=== PATIENT | male | born 1965 | race Caucasian/White ===

== ENCOUNTER 2021-12-27 01:39 | Emergency (ER) | payer OTHER ==
[~2021-12-27] VITALS: Ht 189.2 cm; Wt 113.6 kg
[2021-12-27 01:48] VITALS: BP 120/64
--- NOTE | 2021-12-27 01:54 | PHYS DOC ---
Adult General HPI HPI Patient is a 56-year-old male who presents with left foot injury. States he went hiking with some friends and they hiked approximately 30 something mild over the last 3 days. States that yesterday he noticed some redness and swelling in his foot generally and has some dull achy pain, 5 out of 10. Denies any known traumas, illnesses, fevers, chest pain, shortness of breath, abdominal pain, nausea, vomiting. States he is able to walk on it but it causes him discomfort. States he never had anything like this before. Does not think he had any cuts, scrapes or bites/stings. States he is otherwise healthy, takes no medications and is not allergic to anything he is aware of. Review of Systems Review of Systems Review of systems otherwise unremarkable except noted in HPI Physical Exam Physical Exam Constitutional: Well developed, well nourished, no acute distress, non-toxic appearance. [] Skin: Warm, dry, no erythema, no rash. [] Extremities: No tenderness, no cyanosis, no clubbing, ROM intact, no edema. [] Neurologic: Neurovascular exam intact, left foot circumferentially warm, erythematous with some mild swelling . Range of motion intact, Psychologic: Affect normal, judgement normal, mood normal. [] EKG EKG [] Radiology/Procedures Radiology/Procedures [] Heart Score C/O Chest Pain: No Risk Factors: Risk Factors: DM, Current or recent (<one month) smoker, HTN, HLP, family history of CAD, obesity. Risk Scores: Risk Factors: DM, Current or recent (<one month) smoker, HTN, HLP, family history of CAD, obesity. Course & Med Decision Making Course & Med Decision Making Patient is a 56-year-old male who presents with left foot injury Vital signs not concerning. Physical exam noted above. Given Tylenol, ibuprofen and ice pack. Imaging with no acute osseous abnormalities. Started on antibiotics as cellulitis on differential. Discussed findings with patient. Discussed symptom treatment at home. Advised to follow-up in the morning with primary care physician to update on ED visit and set up an appointment for reevaluation in the next week Gave return precautions to the ED. Patient grateful, verbalized understanding and agreed with plan of discharge. [] Dragon Disclaimer Dragon Disclaimer This electronic medical record was generated, in whole or in part, using a voice recognition dictation system. Departure Departure: Impression: Primary Impression: Cellulitis Disposition: HOME / SELF CARE / HOMELESS Condition: GOOD Referrals: PCP,UNKNOWN (PCP) ELIUD ORLANDO MD Patient Instructions: RICE - Routine Care for Injuries Additional Instructions: Thank you for coming into the emergency department tonight and allowing us to take care of you. Please read the attached information carefully to go over things we discussed. You can use Tylenol, ibuprofen and ice as needed. Please follow-up in the morning with your primary care physician update on your ED visit and set up a follow-up. Please come back with new or concerning symptoms as we discussed. Scripts Cephalexin (KEFLEX) 500 Mg Capsule 1 CAP PO TID for cellulitis for 7 Days, #21 CAP Prov: ABBYE RAMSEY MD 12/27/21 ABBEY RAMSEY MD Dec 27, 2021 01:53
[2021-12-27] MEDS ORDERED: IBUPROFEN 600 MG TABLET. PO ONE (02:45)
[2021-12-27] MEDS ORDERED: CEPHALEXIN 250 MG CAPSULE PO ONE (02:45)
[2021-12-27] MEDS ORDERED: ACETAMINOPHEN 500 MG TABLET PO ONE (02:45)
--- NOTE | 2021-12-27 02:46 | RAD ---
XR EXAM OF ANKLE_LEFT 3V, XR FOOT_LEFT 3 VIEWS 12/27/2021 2:29 AM INDICATION: Pain and swelling COMPARISON: None available. TECHNIQUE: 3 views of the left foot and 3 views of the left ankle are provided. FINDINGS/ IMPRESSION: There is no acute fracture or dislocation. No periosteal reaction or cortical thickening to suggest s tress fracture. Joint spaces are maintained. Bone mineralization is within normal limits. Regional so ft tissues are within normal limits. There is no soft tissue gas or osseous erosion. No radiopaque fo reign body. Plantar calcaneal enthesophyte. Electronically signed by: Joy Baig MD (12/27/2021 2:43 AM) [facility]
[2021-12-27] MEDS ORDERED: CEPH500C PO (03:00)
== END 2021-12-27 03:05 | disposition home or self-care (01) ==
LOC: ER 01:39
DX: L03.116 Cellulitis of left lower limb (principal)
CPT/HCPCS: 73610; 73630; 99284